=== PATIENT | female | born 1955 | race Asian ===

== ENCOUNTER 2017-07-15 08:53 | Outpatient (CLI) | payer OTHER | END 2017-07-15 19:30 | disposition home or self-care (01) | LOC: SMA 08:53 | PROVIDERS: ATTEND Internal Medicine Geriatric Medicine | DX: Z12.31 Encounter for screening mammogram for malignant neoplasm of breast (principal) | CPT/HCPCS: G0202 ==

== ENCOUNTER 2018-07-18 09:01 | Outpatient (CLI) | payer OTHER | END 2018-07-18 17:51 | disposition home or self-care (01) | LOC: SMA 09:01 | PROVIDERS: ATTEND Internal Medicine Geriatric Medicine | DX: Z12.31 Encounter for screening mammogram for malignant neoplasm of breast (principal) | CPT/HCPCS: 77067 ==

== ENCOUNTER 2018-11-24 11:33 | Day surgery (SDC) | payer OTHER ==
[2018-11-24] MEDS ORDERED: SIMETHICONE 40 MG/0.6 ML ML ONE (12:16)
[2018-11-24] MEDS ORDERED: MIDAZOLAM HCL 5 MG/5 ML VIAL ONE (12:17)
[2018-11-24] MEDS: MIDAZOLAM HCL 5 MG/5 ML VIAL ONE ×3 (12:49→12:56)
[2018-11-24] MEDS: MEPERIDINE HCL/PF 100 MG/ML AMP ONE ×2 (12:49→12:51)
[2018-11-24 15:36] VITALS: BP_SYST 101
== END 2018-11-24 15:45 | disposition home or self-care (01) ==
LOC: SDS 11:33 → SMU 11:45 → SDS 15:45
PROVIDERS: ATTEND Internal Medicine Gastroenterology
DX: Z12.11 Encounter for screening for malignant neoplasm of colon (principal); K64.8 Other hemorrhoids; I10 Essential (primary) hypertension; E78.5 Hyperlipidemia, unspecified; Z90.49 Acquired absence of other specified parts of digestive tract; Z79.899 Other long term (current) drug therapy
CPT/HCPCS: 45378; J2175; J2250

== ENCOUNTER 2019-07-26 11:04 | Outpatient (CLI) | payer OTHER | END 2019-07-26 20:25 | disposition home or self-care (01) | LOC: SMA 11:04 | PROVIDERS: ATTEND Internal Medicine Geriatric Medicine | DX: Z12.31 Encounter for screening mammogram for malignant neoplasm of breast (principal) | CPT/HCPCS: 77067 ==